=== PATIENT | male | born 1985 | race Caucasian/White ===

== ENCOUNTER 2018-05-01 14:09 | Emergency (ER) | payer SELFPAY ==
[~2018-05-01] VITALS: Ht 180.3 cm; Wt 106.1 kg
[2018-05-01 14:14] VITALS: BP 122/82; Ht 180.3 cm; Wt 106.1 kg
== END 2018-05-01 17:12 | disposition left against medical advice (07) ==
LOC: ED 14:09
DX: Z53.21 Procedure and treatment not carried out due to patient leaving prior to being seen by health care provider (principal)